=== PATIENT | female | born 1990 | race Hispanic/Latino ===

== ENCOUNTER 2020-11-17 09:02 | Outpatient (CLI) | payer OTHER ==
[2020-11-17 20:55] LABS: SARS-CoV-2 PCR by NAA Not Detected (NotDetected)
== END 2020-11-17 09:03 | disposition home or self-care (01) ==
LOC: CSHLAB 09:02
PROVIDERS: ATTEND Family Medicine
DX: Z20.822 Contact with and (suspected) exposure to COVID-19 (principal)
CPT/HCPCS: 87635; U0003; U0005

== ENCOUNTER 2020-11-21 08:58 | Inpatient (IN) | payer MEDICAID, OTHER, SELFPAY ==
[2020-11-21] MEDS ORDERED: Bupivacaine 0.25% HCL 30 ML VIAL ONE (09:37)
[2020-11-21] MEDS ORDERED: NS w/ Oxytocin 30 units 500 ML IV SCH ×3 (09:38→18:11)
[2020-11-21] MEDS ORDERED: Lactated Ringer's 1,000 ML IV SCH (09:38)
[2020-11-21] MEDS ORDERED: hydrALAZINE 20 MG/ML VIAL SLOW IVP PRN ×2 (09:38→18:11)
[2020-11-21] MEDS ORDERED: Lidocaine 1% (PF) 30 ML VIAL SC PRN (09:38)
[2020-11-21] MEDS ORDERED: Carboprost 250 MCG/ML AMP IM PRN (09:38)
[2020-11-21] MEDS ORDERED: Butorphanol Tartrate 1 MG/ML VIAL SLOW IVP PRN (09:38)
[2020-11-21] MEDS ORDERED: Methylergonovine 0.2 MG/ML VIAL IM PRN (09:38)
[2020-11-21] MEDS ORDERED: NS w/ Oxytocin 30 units 500 ML IVPB SCH (09:38)
[2020-11-21] MEDS ORDERED: Diphenoxylate HCl/Atropine Tablet PO PRN (09:38)
[2020-11-21] MEDS ORDERED: Misoprostol 200 MCG TAB PR PRN (09:38)
[2020-11-21] MEDS ORDERED: HYDROcodone/Acetaminophen 5/325 mg Tablet PO PRN ×3 (09:38→18:11)
[2020-11-21] MEDS ORDERED: Ibuprofen 800 MG TAB PO PRN (09:38)
[2020-11-21] MEDS ORDERED: Promethazine HCl 25 MG/ML VIAL IM PRN ×3 (09:38→18:11)
[2020-11-21] MEDS ORDERED: Ondansetron PF 4 MG/2 ML Vial IVP PRN ×3 (09:38→18:11)
[2020-11-21 10:05] VITALS: BMI 35.3
[2020-11-21] MEDS ORDERED: NS w/ Oxytocin 30 units 500 ML ONE ×2 (10:05→18:16)
[2020-11-21 10:09] LABS: Hemoglobin 12.8 g/dL (12.0-15.5); Mean Corpuscular HGB CONC 34.3 g/dL (32.0-36.0); Mean Corpuscular Hemoglobin 30.8 pg (27.0-33.0); Mean Corpuscular Volume 89.9 fl (81.6-98.3); Mean Platelet Volume 12.1 fl (7.4-10.4); Platelet Count 143 10x3/uL (150-450); RBC Distribution Width 14.2 % (11.5-14.5); Red Blood Cell (RBC) Count 4.15 10x6/uL (3.90-5.03); White Blood Cell (WBC) Count 9.7 10x3/uL (3.5-10.5)
[2020-11-21] MEDS ORDERED: Penicillin G Potassium 5 MILL.UNITS VIAL ONE (10:27)
[2020-11-21] MEDS ORDERED: Penicillin G Potassium 5 MILL.UNITS in Sodium Chloride 0.9% 100 ML IVPB SCH (10:30)
[2020-11-21 10:40] LABS: Hep B Surf Ag Non-Reactive S/CO (NonReactive)
[2020-11-21 10:41] LABS: Syphilis Antibody Nonreactive (Nonreactive); Syphilis Antibody Index 0.04 S/CO (<1.00 Non-Reactive)
[2020-11-21] MEDS ORDERED: BUP ONE (13:13)
[2020-11-21] MEDS ORDERED: FENTANYL ONE (13:13)
[2020-11-21] MEDS ORDERED: diphenhydrAMINE 50 MG/ML VIAL IVP PRN (13:48)
[2020-11-21] MEDS ORDERED: Eucerin (Mineral Oil/Petrolatum,White) 30 gm Jar TOP PRN (13:48)
[2020-11-21] MEDS ORDERED: ePHEDrine 50 MG/ML VIAL SLOW IVP PRN (13:48)
[2020-11-21] MEDS ORDERED: Naloxone HCl 0.4 mg/ml Vial IVP PRN ×2 (13:48)
[2020-11-21] MEDS ORDERED: Lactated Ringer's 500 ML IV PRN (13:48)
[2020-11-21] MEDS ORDERED: Acetaminophen 325 MG TAB PO PRN (13:48)
[2020-11-21] MEDS ORDERED: Communication Order-Pharmacy FS SCH (14:00)
[2020-11-21] MEDS ORDERED: Fentanyl 4 mcg/Bup 0.1667% 200 ML CADD EPIDURAL SCH (14:00)
[2020-11-21] MEDS ORDERED: Pen G 2.5 MILL.UNITS/50 ML BAG IVPB SCH (14:30)
[2020-11-21] MEDS ORDERED: Adacel (T-DAP) 0.5 ML SYRINGE IM ONE (18:11)
[2020-11-21] MEDS ORDERED: diphenhydrAMINE 25 MG CAP PO PRN (18:11)
[2020-11-21] MEDS ORDERED: Milk Of Magnesia 30 ML UDCUP PO PRN (18:11)
[2020-11-21] MEDS ORDERED: Bisacodyl 10 MG SUPP PR PRN (18:11)
[2020-11-21] MEDS ORDERED: Lanolin Ointment 7 GM TUBE TOP PRN (18:11)
[2020-11-21] MEDS ORDERED: Ferrous Sulfate 325 MG TAB PO SCH (18:45)
[2020-11-21] MEDS: Ibuprofen 800 MG TAB PO SCH (21:46)
[2020-11-21] MEDS: Docusate Calcium (SURFAK) 240 MG CAP PO SCH (21:46)
[2020-11-22] MEDS: Ibuprofen 800 MG TAB PO SCH ×2 (05:54→13:13)
[2020-11-22] MEDS: Ferrous Sulfate 325 MG TAB PO SCH ×2 (07:18→07:19)
[2020-11-22] MEDS: Docusate Calcium (SURFAK) 240 MG CAP PO SCH (08:23)
[2020-11-22] MEDS ORDERED: Prenatal Vitamin 1 TAB PO SCH (09:00)
[2020-11-22 17:28] VITALS: BP 119/81; TEMP 99.2
== END 2020-11-22 19:16 | disposition home or self-care (01) | DRG 807 ==
LOC: CSHLD 08:58 → CSHPED 18:20 → EDSTATUS 11-28 17:55
PROVIDERS: ADMIT Family Medicine; ATTEND Family Medicine
PROC: 10E0XZZ Delivery of Products of Conception, External Approach (ICD-10-PCS; principal; 2020-11-21)
PROC: 10907ZC Drainage of Amniotic Fluid, Therapeutic from Products of Conception, Via Natural or Artificial Opening (ICD-10-PCS; 2020-11-21)
PROC: 3E033VJ Introduction of Other Hormone into Peripheral Vein, Percutaneous Approach (ICD-10-PCS; 2020-11-21)
DX: O99.824 Streptococcus B carrier state complicating childbirth (principal); Z37.0 Single live birth; Z3A.39 39 weeks gestation of pregnancy; Z20.822 Contact with and (suspected) exposure to COVID-19
CPT/HCPCS: 36415; 51702; 85027; 86780; 86850; 86900; 86901; 87340; J2540; J2590; J3490